=== PATIENT | male | born 1945 | race Caucasian/White ===

== ENCOUNTER 2016-11-09 11:09 | Emergency (ER) | payer MEDICARE ==
[2016-11-09] MEDS ORDERED: Adacel (T-DAP) 0.5 ML VIAL ONE (11:25)
[2016-11-09] MEDS ORDERED: Bacitracin Zinc 1 Packet ONE (11:39)
== END 2016-11-09 11:54 ==
LOC: BURERS 11:09
DX: S61.412A Laceration without foreign body of left hand, initial encounter (principal); I48.91 Unspecified atrial fibrillation; E78.5 Hyperlipidemia, unspecified; I10 Essential (primary) hypertension; W54.0XXA Bitten by dog, initial encounter
CPT/HCPCS: 90471; 90715